=== PATIENT | male | born 1990 | race Caucasian/White ===

== ENCOUNTER 2018-10-06 15:39 | Emergency (ER) | payer OTHER ==
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
[2018-10-06] MEDS ORDERED: IBUPROFEN 800 MG TAB PO ONE ×2 (16:18)
[2018-10-06 17:37] VITALS: BP 124/93
== END 2018-10-06 17:35 | disposition home or self-care (01) ==
DX: R07.9 Chest pain, unspecified (principal); M79.652 Pain in left thigh; T14.8XXA Other injury of unspecified body region, initial encounter; V09.9XXA Pedestrian injured in unspecified transport accident, initial encounter; Y93.23 Activity, snow (alpine) (downhill) skiing, snowboarding, sledding, tobogganing and snow tubing; Y92.828 Other wilderness area as the place of occurrence of the external cause; Y99.0 Civilian activity done for income or pay